=== PATIENT | male | born 1995 | race Two or more races ===

== ENCOUNTER 2025-07-09 23:06 | Emergency (ER) | payer MEDICAID, OTHER ==
[~2025-07-09] VITALS: Ht 172.7 cm; Wt 78.0 kg
[2025-07-09 23:10] VITALS: BP 138/60; PULSE 79; RESP 16; TEMP 98.5; O2SAT 99
[2025-07-09 23:58] LABS: Hematocrit 37.9 % (41.0-53.0); Hemoglobin 13.1 g/dL (13.5-17.5); Mean Corpuscular Hemoglobin 35.0 pg (28.0-32.0); Mean Corpuscular Volume 101.6 fL (80.0-100.0); Nucleated Red Blood Cells % 0.1 %
[2025-07-10 00:13] LABS: Alanine Aminotransferase 13 U/L (7-40); Albumin 4.3 g/dL (3.2-4.8); Alkaline Phosphatase 67 U/L (46-116); Anion Gap 10 (5-15); BUN/Creatinine Ratio 10.2 (10.0-20.0); Blood Urea Nitrogen 11 mg/dL (9-23); Calcium 9.1 mg/dL (8.7-10.4); Carbon Dioxide 27 mmol/L (20-31); Chloride 106 mmol/L (98-107); Glucose 99 mg/dL (74-106); Potassium 3.9 mmol/L (3.5-5.1); Sodium 143 mmol/L (136-145); Total Protein 6.6 g/dL (5.7-8.2)
[2025-07-10 00:14] LABS: Bilirubin, Total 0.3 mg/dL (0.2-1.0)
[2025-07-10] MEDS ORDERED: POTA-36 PO (02:55)
[2025-07-10] MEDS ORDERED: FURO1TAB33 PO (02:55)
--- NOTE | 2025-07-10 02:56 | ED.PDOC ---
Musculoskeletal HPI Comments 30-YEAR-OLD MALE PRESENTS TO THE ED WITH C/C OF BILATERAL LOWER EXTREMITY SWELLING X 5 DAYS. DENIES ANY TRAUMA. REPORTS HISTORY OF ALCOHOLISM AND LIVER DISEASE HOWEVER HE DOES STATE HAS BEEN SOBER FOR SEVERAL MONTHS. DENIES NUMBNESS, WEAKNESS, CHEST PAIN, SHORTNESS OF BREATH, HISTORY OF BLOOD CLOTS, HISTORY OF CHF AND DRUG USE. Chief Complaint: Lower Extremity Time Seen by MD: 23:08 Reviewed Notes: Nurses Notes, Medications, Allergies Allergies: Coded Allergies: NO KNOWN ALLERGIES (Unverified , 07/09/25) Home Meds Active Scripts Potassium Chloride (POTASSIUM CHLORIDE CR) 10 Meq Tb, 1 TAB PO DAILY for 14 Days, #14 TAB Prov:YORDYGAVIOTA EMAIL MARKETING MANAGER 07/10/25 Furosemide (Lasix) 20 Mg Tb, 1 TAB PO DAILY for 14 Days, #14 TAB Prov:YORDYGAVIOTA EMAIL MARKETING MANAGER 07/10/25 Information Source: Patient Mode of Arrival: Ambulatory Past Medical History PAST MEDICAL HISTORY: Denies Surgical History: Denies all surgeries Family History Family History: Reviewed,noncontributory to illness Social History Smoker: Non-Smoker Alcohol: Denies ETOH Use Drugs: Denies Drug Use All Other Systems: Reviewed and Negative (SEE HPI) Physical Exam General Appearance: No Apparent Distress, Normal HEENT: Normal ENT Inspection, Pharynx Normal, TMs Normal Neck: Full Range of Motion, Non-Tender Respiratory: Lungs Clear, No Respiratory Distress, Normal Breath Sounds Cardiovascular: No Edema, No JVD, No Murmur, No Gallop, Normal Peripheral Pulses, Regular Rate/Rhythm Breast Exam: Deferred Gastrointestinal: No Organomegaly, Non Tender, No Pulsatile Mass, Normal Bowel Sounds, Soft Genitalia: Deferred Pelvic: Deferred Rectal: Deferred Extremities: No calf tenderness, Normal capillary refill, Normal range of motion, Pedal edema (+PITTING BILATERAL FEET AND ANKLES) Musculoskeletal : Apperance: Normal Neurologic: Alert, curriculum director II-XII nml as Tested, No Motor Deficits, Normal Affect, Normal Mood, No Sensory Deficits Cerebellar Function: Normal Reflexes: Normal Skin: Dry, Normal Color, Warm Lymphatic: No Adenopathy Was a procedure done? Was a procedure done?: No Differential Diagnosis EXT Differential Diagnosis: CHF, Rheumatoid, Arthritis X-Ray, Labs, Meds, VS Vital Signs Date Time Temp Pulse Resp B/P (MAP) Pulse Ox O2 Delivery O2 Flow Rate FiO2 07/09/25 23:10 98.5 79 16 138/60 99 98.5 Lab Test 07/09/25 23:32 Range/Units White Blood Count 7.2 4.4-10.8 10^3/uL Red Blood Count 3.73 L 4.5-5.90 10^6/uL Hemoglobin 13.1 L 13.5-17.5 g/dL Hematocrit 37.9 L 41.0-53.0 % Mean Corpuscular Volume 101.6 H 80.0-100.0 fL Mean Corpuscular Hemoglobin 35.0 H 28.0-32.0 pg Mean Corpuscular Hemoglobin Concent 34.5 32.0-36.0 g/dL Red Cell Distribution Width 14.8 H 11.8-14.3 % Platelet Count 242 140-450 10^3/uL Mean Platelet Volume 9.0 6.9-10.8 fL Neutrophils (%) (Auto) 49.8 37.0-80.0 % Lymphocytes (%) (Auto) 32.0 10.0-50.0 % Monocytes (%) (Auto) 13.3 H 0.0-12.0 % Eosinophils (%) (Auto) 4.1 0.0-7.0 % Basophils (%) (Auto) 0.8 0.0-2.0 % Neutrophils # (Auto) 3.6 1.6-8.6 10 ^3/uL Lymphocytes # (Auto) 2.3 0.4-5.4 10 ^3/uL Monocytes # (Auto) 1.0 0-1.3 10 ^3/uL Eosinophils # (Auto) 0.3 0-0.8 10 ^3/uL Basophils # (Auto) 0.1 0-0.2 10 ^3/uL Nucleated Red Blood Cells 0.1 % Sodium Level 143 136-145 mmol/L Potassium Level 3.9 3.5-5.1 mmol/L Chloride Level 106 98-107 mmol/L Carbon Dioxide Level 27 20-31 mmol/L Anion Gap 10 5-15 Blood Urea Nitrogen 11 9-23 mg/dL Creatinine 1.08 0.700-1.30 mg/dL Glomerular Filtration Rate Calc 94 >90 mL/min BUN/Creatinine Ratio 10.2 10.0-20.0 Serum Glucose 99 74-106 mg/dL Calcium Level 9.1 8.7-10.4 mg/dL Total Bilirubin 0.3 0.2-1.0 mg/dL Aspartate Amino Transferase (AST) 23 13-40 U/L Alanine Aminotransferase (ALT) 13 7-40 U/L Alkaline Phosphatase 67 46-116 U/L B-Type Natriuretic Peptide 35.60 0-100 pg/mL Total Protein 6.6 5.7-8.2 g/dL Albumin 4.3 3.2-4.8 g/dL X-Ray, Labs, Meds, VS Comment CBC, CMP, BNP ALL WITHIN NORMAL LIMITS. SCRIPT TRIAL OF POTASSIUM AND LASIX. ADVISED TO REST ELEVATE LOWER EXTREMITIES THROUGHOUT THE DAY USE COMPRESSION STOCKINGS. TAKE MEDICATIONS PRESCRIBED SIDE EFFECTS DISCUSSED. FOLLOW UP WITH HIS PCP IN 2-3 DAYS. WE DISCUSSED ER RETURN PRECAUTIONS PATIENT INDICATES UNDERSTANDING AND AGREES WITH DISCHARGE PLAN OF CARE. Time of 1ST Reevaluation: 23:28 Reevaluation 1ST: Unchanged Time of 2ND Reevaluation: 02:55 Reevaluation 2ND: Improved Patient Education/Counseling: Diagnosis, Treatment, Prognosis, Need For Follow Up Family Education/Counseling: No Family Present Departure 1 Departure Time of Disposition: 02:53 Impression: Primary Impression: Bilateral lower extremity edema Disposition: 01 HOME / SELF CARE / HOMELESS Condition: Stable Additional Instructions: FOLLOW UP WITH YOUR PCP IN 2-3 DAYS OR RETURN TO THE ER. REST, ELEVATE YOUR LEGS SEVERAL TIMES A DAY USE COMPRESSION STOCKINGS LIMIT SALT INTAKE. e-Prescriptions Potassium Chloride (POTASSIUM CHLORIDE CR) 10 Meq Tb 1 TAB PO DAILY for 14 Days, #14 TAB Prov: GAVIOTA SCALES 07/10/25 Furosemide (Lasix) 20 Mg Tb 1 TAB PO DAILY for 14 Days, #14 TAB Prov: GAVIOTA SCALES 07/10/25 Discharged With: Self Critical Care Note Critical Care Time?: No Stability Stability form required: GAVIOTA Daniel Jul 10, 2025 02:56
== END 2025-07-10 03:20 | disposition home or self-care (01) ==
LOC: ER 23:06
DX: R60.0 Localized edema (principal); Z79.899 Other long term (current) drug therapy
CPT/HCPCS: 36415; 80053; 83880; 85025